=== PATIENT | male | born 1995 | race Caucasian/White ===

== ENCOUNTER 2023-07-26 15:12 | Inpatient (IN) | payer OTHER ==
[~2023-07-26] VITALS: Ht 175.3 cm; Wt 77.1 kg
[2023-07-26] MEDS: IV NORMAL SALINE 1000 ML BAG IV ONE (16:11)
[2023-07-26] MEDS ORDERED: KETOROLAC TROMETHAMINE 15 MG INJ ONE (16:16)
[2023-07-26] MEDS ORDERED: PHENOBARBITAL SODIUM 130 MG/1 ML DISP.SYRIN ONE (16:16)
[2023-07-26] MEDS ORDERED: METOCLOPRAMIDE HCL 10 MG/2 ML VIAL ONE (16:16)
[2023-07-26] MEDS ORDERED: THIAMINE HCL 200 MG/2 ML VIAL ONE (16:16)
[2023-07-26] MEDS: KETOROLAC TROMETHAMINE 15 MG INJ IVP ONE (16:29)
[2023-07-26] MEDS: PHENOBARBITAL SODIUM 130 MG/1 ML DISP.SYRIN IV ONE (16:29)
[2023-07-26] MEDS: THIAMINE HCL 200 MG/2 ML VIAL IV ONE (16:29)
[2023-07-26] MEDS: METOCLOPRAMIDE HCL 10 MG/2 ML VIAL IV ONE (16:29)
[2023-07-26 16:50] LABS: BASOPHILS # (AUTO) 0.1 K/UL (0.0-0.2); HEMATOCRIT 42.5 % (36.7-47.1); HEMOGLOBIN 14.7 g/dL (12.5-16.3); LYMPHOCYTES # (AUTO) 0.3 K/uL (0.8-4.8); LYMPHOCYTES % (AUTO) 2.3 % (20.5-51.5); MEAN CORPUSCULAR HGB CONC 35 g/dL (32.5-36.3); MEAN CORPUSCULAR VOLUME 92.5 fL (73.0-96.2); MONOCYTES # (AUTO) 0.4 K/uL (0.1-1.30); MONOCYTES % (AUTO) 3.3 % (0.0-11.0); NEUTROPHILS % (AUTO) 93.4 % (38.5-71.5); PLATELET COUNT (AUTO) 235 K/uL (152-348); RED BLOOD CELL COUNT(AUTO) 4.59 MIL/uL (4.06-5.63); RED CELL DISTRIBUTION WIDTH 12.3 % (12.1-16.2); WHITE BLOOD COUNT (AUTO) 12.8 K/uL (3.6-10.2)
[2023-07-26 17:00] LABS: CALCIUM 7.5 mg/dL (8.5-10.1); CARBON DIOXIDE 19 mmol/L (21-32); CHLORIDE 105 mmol/L (98-107); GLUCOSE 108 mg/dL (74-106); POTASSIUM 3.7 mmol/L (3.5-5.1); SODIUM SERUM 143 mmol/L (136-145); UREA NITROGEN, BLOOD 24 mg/dL (7-18)
[2023-07-26 17:01] LABS: AMMONIA 15 umol/L (11-32)
[2023-07-26 17:02] LABS: DIFFERENTIAL COMMENT 1
[2023-07-26 17:09] LABS: ALANINE AMINOTRANSFERASE 87 U/L (16-63); ALBUMIN 3.4 g/dL (3.4-5.0); ALKALINE PHOSPHATASE 94 U/L (50-136); ASPARTATE AMINOTRANSFERASE 153 U/L (15-37); BILIRUBIN,DIRECT 0.1 mg/dL (0.0-0.2); BILIRUBIN,TOTAL 0.4 mg/dL (0.2-1.0); LACTIC ACID 5.3 mmol/L (0.4-2.0); LIPASE 50 U/L (16-77); TOTAL PROTEIN, SERUM 6.6 g/dL (6.4-8.2)
[2023-07-26 18:32] VITALS: BP 134/76; TEMP 98.3; O2SAT 97
[2023-07-26 19:12] VITALS: BP 134/76; TEMP 98.3; O2SAT 97
[2023-07-26] MEDS ORDERED: ACETAMINOPHEN 325 MG TABLET PO PRN (19:15)
[2023-07-26] MEDS ORDERED: MAG HYDROX/AL HYDROX/SIMETH 30 ML LIQUID UDC PO PRN (19:15)
[2023-07-26] MEDS: LORAZEPAM 2 MG/1 ML VIAL IV PRN (20:08)
[2023-07-26] MEDS: ONDANSETRON 4 MG/2 ML VIAL IV PRN (20:08)
[2023-07-26] MEDS ORDERED: IV 1/2 NS + KCL 20 MEQ BAG 1,000 ML ONE (20:31)
[2023-07-26] MEDS: HYDROCODONE/APAP 5-325MG TABLET PO PRN (21:14)
[2023-07-26] MEDS: POTASSIUM CHLORIDE 20 MEQ in IV 1/2NS 1000 ML 1,000 ML IV PRN (21:29)
[2023-07-27 00:05] VITALS: BP 140/83; TEMP 98; O2SAT 95
[2023-07-27] MEDS: QUETIAPINE FUMARATE 100 MG TABLET PO SCH (00:09)
[2023-07-27 06:00] VITALS: BP 154/99; TEMP 97.6; O2SAT 97
[2023-07-27] MEDS: PANTOPRAZOLE SODIUM 40 MG TABLET.DR PO SCH (06:33)
[2023-07-27 07:07] LABS: BILIRUBIN,TOTAL 1.4 mg/dL (0.2-1.0); MAGNESIUM 1.9 mg/dL (1.8-2.4); PHOSPHOROUS 3.2 mg/dL (2.5-4.9); POTASSIUM 3.3 mmol/L (3.5-5.1); TOTAL PROTEIN, SERUM 5.7 g/dL (6.4-8.2)
[2023-07-27 07:09] LABS: BASOPHILS % (AUTO) 0.3 % (0.0-2.0); EOSINOPHILS # (AUTO) 0.2 K/uL (0.0-0.7); EOSINOPHILS % (AUTO) 4.9 % (0.0-7.0); HEMATOCRIT 38.2 % (36.7-47.1); HEMOGLOBIN 13.4 g/dL (12.5-16.3); LYMPHOCYTES # (AUTO) 1.3 K/uL (0.8-4.8); LYMPHOCYTES % (AUTO) 27.5 % (20.5-51.5); MEAN CORPUSCULAR HEMOGLOBIN 32.2 uug (23.8-33.4); MEAN CORPUSCULAR HGB CONC 35 g/dL (32.5-36.3); MONOCYTES # (AUTO) 0.3 K/uL (0.1-1.30); MONOCYTES % (AUTO) 6.3 % (0.0-11.0); NEUTROPHILS # (AUTO) 2.9 K/uL (1.8-8.9); PLATELET COUNT (AUTO) 172 K/uL (152-348); RED BLOOD CELL COUNT(AUTO) 4.15 MIL/uL (4.06-5.63); RED CELL DISTRIBUTION WIDTH 12.4 % (12.1-16.2); WHITE BLOOD COUNT (AUTO) 4.8 K/uL (3.6-10.2)
[2023-07-27 08:00] VITALS: BP 149/105; TEMP 98.2; O2SAT 97
[2023-07-27] MEDS: THIAMINE HCL 100 MG TABLET PO SCH (08:40)
[2023-07-27] MEDS: FOLIC ACID 1 MG TABLET PO SCH (08:40)
[2023-07-27] MEDS: MULTIVITAMINS,THERAPEUTIC TABLET PO SCH (08:40)
[2023-07-27] MEDS ORDERED: IRBE300T19 PO (11:42)
[2023-07-27] MEDS ORDERED: QUET100T PO (11:43)
[2023-07-27 12:06] VITALS: BP 147/104; TEMP 98.4; O2SAT 99
[2023-07-27] MEDS ORDERED: CLONIDINE HCL 0.1 MG TABLET PO PRN ×2 (14:15)
[2023-07-27] MEDS: POTASSIUM CHLORIDE 20 MEQ TAB.PRT.SR PO ONE (15:28)
[2023-07-27 15:29] VITALS: BP 147/104
[2023-07-27] MEDS: CLONIDINE HCL 0.1 MG TABLET PO SCH (15:29)
[2023-07-27] MEDS ORDERED: VALSARTAN 160 MG TABLET PO ONE (17:00)
== END 2023-07-27 16:45 | disposition left against medical advice (07) | DRG 392 ==
LOC: ER 15:14 → TELE3 18:25
PROVIDERS: ADMIT Internal Medicine; ATTEND Internal Medicine
DX: K29.20 Alcoholic gastritis without bleeding (principal); E87.20 Acidosis, unspecified; F10.139 Alcohol abuse with withdrawal, unspecified; D72.829 Elevated white blood cell count, unspecified; Y90.2 Blood alcohol level of 40-59 mg/100 ml; E87.6 Hypokalemia; K76.0 Fatty (change of) liver, not elsewhere classified; F10.129 Alcohol abuse with intoxication, unspecified; I10 Essential (primary) hypertension; F17.210 Nicotine dependence, cigarettes, uncomplicated; R74.01 Elevation of levels of liver transaminase levels; F99 Mental disorder, not otherwise specified
CPT/HCPCS: 36415; 71045; 83605; 83690; 83735; 84100; 84484; 85025; 85730; 87040; 93005; A4606; A4663; G0378; G0480; J1885; J2060; J2405; J2560; J2765; J3411; J3480; J3490; J7040